=== PATIENT | male | born 1950 | race Caucasian/White ===

== ENCOUNTER 2018-10-19 11:30 | Outpatient (RCR) | payer OTHER, SELFPAY ==
--- NOTE | 2018-10-17 17:15 | PT.OIE ---
Current Diagnoses Pelvic and perineal pain (10/11/18) Provider Visit Care Team Role Provider Type Josh Mathew MD Primary Care Provider Non-Staff Specialty: Medical Address: [address] [place] [address], [place], [address] Email: Rick Monique Attending Provider Non-Staff Specialty: Urology Address: [address] [place] [address], [id number] Email: Physical Therapy Initial Evaluation PT-OP-A Visit Information Start: 10/11/18 17:12 Freq: Status: Active Protocol: Document 10/11/18 15:15 [facility] (Rec: 10/16/18 17:33 [facility] [email or web address]) Out-Patient Physical Therapy Visit Information Visit Information Visit Type Initial Evaluation Visit Note 68 year old male with B groin pain and testicle pain. He has a history of B hernia repair with mesh 10 years ago. 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 This last episode of groin pain and testicle pain occured without a hematocele and occured after he had a upper respiratory track infection and was experiencing a great deal of coughing. He reported this time he also had pain in his left adductor and pain with adducting his left leg. His pain is largely on the left side. Visit Start Time 15:15 Visit Stop Time 16:00 Total Visit Minutes 45 Visit Number 1 Evaluation Information Evaluation Date 10/11/18 PT-OP-B Current Condition Start: 10/11/18 17:12 Freq: Status: Active Protocol: Document 10/11/18 15:15 [facility] (Rec: 10/16/18 17:33 [facility] [email or web address]) Current Condition History of Current Condition Onset Date September 2018 Current Complaints Left greater than right adductor pain, bilateral inguinal and testicle pain History of Current Condition 68 year old male with bilateral groin pain and testicle pain left greater than right that was recently aggravated with heavy coughing following a upper respiratory track infection. Neville has a history of testicle and inguinal pain in the past 25 years. He had a vasectomy 30 years ago. Five years after this he had a hematocele that caused testical and inguinal pain. This resolved but has happened 5-6 times since then. This last episode though was brought on with his heavy coughing. He also had bilateral inguinal repair approximately 10 years ago. He also reports he works hard in his yard 3-4 times per week which involves using a chain saw and lifting logs. Current Functional Impairments (Reported) Functional Limitations- ADL's pain limiting activity rated 4 /10 PT-OP-F Manual Assessment Start: 10/11/18 17:12 Freq: Status: Active Protocol: Document 10/11/18 17:12 [facility] (Rec: 10/11/18 17:13 [facility] [email or web address]) Manual Assessments Soft Tissue Assessment Soft Tissue Mobility Assessment left sided iliopsoas myofascial tightness and guarding, left sided abdominal wall guarding, adductor attacment to the pubic ramus tenderness and tightness, small amounts of guarding at the left obturator internus attacments PT-OP-I Pelvic Floor Start: 10/11/18 17:12 Freq: Status: Active Protocol: Document 10/11/18 15:15 [facility] (Rec: 10/16/18 17:40 [facility] [email or web address]) Pelvic Floor Assessment Urine Pelvic Floor Surgery No PT-OP-J Posture/Palpation/Skin Start: 10/16/18 17:34 Freq: Status: Active Protocol: Document 10/11/18 15:15 [facility] (Rec: 10/16/18 17:40 [facility] [email or web address]) Palpation Assessment Location Two Palpation Location upper abdominal tightness and myofascial restrictions Palpation Details restrictions in the abdominal fascia over the left greater than right inguinal region and bladder One Palpation Location left iliopsoas Palpation Findings Soft Tissue Tightness Muscle Guarding Palpation Details tightness and spasm of the left greater than right iliopsoas PT-OP-Q Treatments Start: 10/16/18 17:34 Freq: Status: Active Protocol: Document 10/11/18 15:15 [facility] (Rec: 10/16/18 17:40 [facility] [email or web address]) Therapeutic Exercises Other Exercises 2 Other Exercise Name cobra stretch Side bilateral 1 Other Exercise Name iliopsoas stretching in neville test and 1/2 kneeling Side bilateral PT-OP-T Assessment and Plan Start: 10/16/18 17:34 Freq: Status: Active Protocol: Document 10/11/18 15:15 [facility] (Rec: 10/17/18 17:15 [facility] [email or web address]) Physical Therapy Assessment Rehab Potential Rehabilitation Potential Good Evaluation Complexity Number of Personal Factors/Comorbidities 1-2 Number of Body Systems Impaired 3 Clinical Presentation at Evaluation Evolving Impairments Impairments Activity Tolerance Functional Mobility Pain Soft Tissue Mobility Tone Goals Four Impairment tightness of the left obturator internus Short Term Goal (STG) Neville is given a home stretching routine for the hip ER and pelvic floor muscles to help reduce any restrictions these muscles may be causing that is affecting his pain. STG Duration 4 weeks Three Impairment Restrictions in the fascia of the anterior abdominal wall L> R Custodial Goal (LTG) Using MFR we are able to reduce myofascial restriction creating improved movement of the fascial tissue and the nervous tissue decreasing pain referred to the testicle. Two Impairment shortened length of the left> right iliopsoas Custodial Goal (LTG) Improve the length of the iliopsoas to create decreased tension in the anterior pelvis . Neville test is negative for iliopsoas tightness LTG Duration 8 weeks One Impairment pain rated 4/10 in the left > Right testicles and inguinal region Short Term Goal (STG) Neville is educated on anterior pelvis stretches and postural habits to decrease restriction of the fascia over the anterior pelvis reducing his pain STG Duration 4 weeks Instrument Repairer Goal (LTG) Neville reports his pelvic pain is 1/10 or less LTG Duration 8 weeks Assessment Summary Assessment Neville ia a 68 year old male referred to PT with inguinal and testicular pain. He has a history of a vasectomy 30 years ago. Five years following this he suffered a hematocele with testicular pain. 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 He has also had bilateral inguinal hernia repairs 10 years ago. His recent flare up of inguinal pain and testicular pain began approximately 6 weeks ago with a upper respiratory tract infection. He was coughing a great deal and notes there was a lot of valsalving going on as well. This coughing brought on his testicular pain as well as pain with hip adduction primarily in the left leg. Pain at its worst was 4/10 and now it is around 2-3/10. The pain worsens with coughing. Neville also reports he does a lot of heavy duty yard work including using a chain saw and lifting logs approximately 3 times per week. With examination today there is a great deal of myofascial tightness in the left greater than right abdominal wall, supra pubic region and in the inguinal region. There is left sided guarding and spasm of the adductor attachments to the pubic ramus. Iliopsoas is tight bilaterally left greater than right and there is spasm of the left iliopsoas . It is possible with all the tightness that he is experiencing some myofascial restrictions over the genitofemoral nerve referring pain into the testicles? He sits for greater than 4 hours per day with his work. He is able to facilitate his pelvic floor and did not have tenderness to external palpation over the pudendal nerve. He does have some restrictions in the left obturator internus. Treatment will focus on reducing myofascial restrictions and improving mobility over the abdominal wall and iliopsoas. He will be given stretches for home to help reduce tightness and will be put on a postural program. He may also benefit from down training and relaxation of the pelvic floor utilizing EMG biofeedback. Physical Therapy Plan Frequency and Duration Frequency of Treatment 1x/Week Duration of Treatment 8 weeks Plan of Care Start Date 10/11/18 Plan of Care End Date 12/06/18 Therapeutic Interventions Therapeutic Interventions Home Exercise Program Manual Therapy Neuromuscular Re-education Patient/Caregiver Education Soft Tissue Mobilization Taping Therapeutic Exercises Modalities Biofeedback Next Visit Focus/Plan Next Note Type Treatment Note Next Visit Plan Begin the foam roll next visit to open up the anterior pelvis and anterior myofascial lines, MFR over the abdomen, iliopsoas, and adductors on the left. Review stretches for pelvic pain.
--- NOTE | 2018-10-17 17:19 | PT.OPPOC ---
Current Diagnoses Pelvic and perineal pain (10/11/18) Provider Visit Care Team Role Provider Type Josh Mathew MD Primary Care Provider Non-Staff Specialty: Medical Address: [address] [place] [address], [place], [address] Email: Rick Monique Attending Provider Non-Staff Specialty: Urology Address: [address] [place] [address], [id number] Email: Plan Of Care PT-OP-T Assessment and Plan Start: 10/16/18 17:34 Freq: Status: Active Protocol: Document 10/11/18 15:15 [facility] (Rec: 10/17/18 17:15 [facility] [email or web address]) Physical Therapy Assessment Rehab Potential Rehabilitation Potential Good Evaluation Complexity Number of Personal Factors/Comorbidities 1-2 Number of Body Systems Impaired 3 Clinical Presentation at Evaluation Evolving Impairments Impairments Activity Tolerance Functional Mobility Pain Soft Tissue Mobility Tone Goals Four Impairment tightness of the left obturator internus Short Term Goal (STG) Neville is given a home stretching routine for the hip ER and pelvic floor muscles to help reduce any restrictions these muscles may be causing that is affecting his pain. STG Duration 4 weeks Three Impairment Restrictions in the fascia of the anterior abdominal wall L> R Shactor Helper Goal (LTG) Using MFR we are able to reduce myofascial restriction creating improved movement of the fascial tissue and the nervous tissue decreasing pain referred to the testicle. Two Impairment shortened length of the left> right iliopsoas Long-Term Goal (LTG) Improve the length of the iliopsoas to create decreased tension in the anterior pelvis . Neville test is negative for iliopsoas tightness LTG Duration 8 weeks One Impairment pain rated 4/10 in the left > Right testicles and inguinal region Short Term Goal (STG) Neville is educated on anterior pelvis stretches and postural habits to decrease restriction of the fascia over the anterior pelvis reducing his pain STG Duration 4 weeks Long-Term Goal (LTG) Neville reports his pelvic pain is 1/10 or less LTG Duration 8 weeks Assessment Summary Assessment Neville ia a 68 year old male referred to PT with inguinal and testicular pain. He has a history of a vasectomy 30 years ago. Five years following this he suffered a hematocele with testicular pain. 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 He has also had bilateral inguinal hernia repairs 10 years ago. His recent flare up of inguinal pain and testicular pain began approximately 6 weeks ago with a upper respiratory tract infection. He was coughing a great deal and notes there was a lot of valsalving going on as well. This coughing brought on his testicular pain as well as pain with hip adduction primarily in the left leg. Pain at its worst was 4/10 and now it is around 2-3/10. The pain worsens with coughing. Neville also reports he does a lot of heavy duty yard work including using a chain saw and lifting logs approximately 3 times per week. With examination today there is a great deal of myofascial tightness in the left greater than right abdominal wall, supra pubic region and in the inguinal region. There is left sided guarding and spasm of the adductor attachments to the pubic ramus. Iliopsoas is tight bilaterally left greater than right and there is spasm of the left iliopsoas . It is possible with all the tightness that he is experiencing some myofascial restrictions over the genitofemoral nerve referring pain into the testicles? He sits for greater than 4 hours per day with his work. He is able to facilitate his pelvic floor and did not have tenderness to external palpation over the pudendal nerve. He does have some restrictions in the left obturator internus. Treatment will focus on reducing myofascial restrictions and improving mobility over the abdominal wall and iliopsoas. He will be given stretches for home to help reduce tightness and will be put on a postural program. He may also benefit from down training and relaxation of the pelvic floor utilizing EMG biofeedback. Physical Therapy Plan Frequency and Duration Frequency of Treatment 1x/Week Duration of Treatment 8 weeks Plan of Care Start Date 10/11/18 Plan of Care End Date 12/06/18 Therapeutic Interventions Therapeutic Interventions Home Exercise Program Manual Therapy Neuromuscular Re-education Patient/Caregiver Education Soft Tissue Mobilization Taping Therapeutic Exercises Modalities Biofeedback Next Visit Focus/Plan Next Note Type Treatment Note Next Visit Plan Begin the foam roll next visit to open up the anterior pelvis and anterior myofascial lines, MFR over the abdomen, iliopsoas, and adductors on the left. Review stretches for pelvic pain. Plan of Care Dates Plan of Care Start Date 10/11/18 Plan of Care End Date 12/06/18 Please Sign and Return: I have reviewed this Plan of Care and certify that the skilled therapy services above are required to meet the patient?s needs. Physician Signature Date Printed Name and Credentials Clinical Instructor Signature Printed Name and Credentials
--- NOTE | 2018-10-21 10:27 | PT.OTN ---
Current Diagnoses Pelvic and perineal pain (10/19/18) Physical Therapy Treatment Note PT-OP-A Visit Information Start: 10/11/18 17:12 Freq: Status: Active Protocol: Document 10/19/18 10:20 [facility] (Rec: 10/21/18 10:22 [facility] [email or web address]) Out-Patient Physical Therapy Visit Information Visit Information Visit Type Treatment Note Visit Start Time 11:30 Visit Stop Time 12:15 Total Visit Minutes 45 Visit Number 2 PT-OP-B Current Condition Start: 10/11/18 17:12 Freq: Status: Active Protocol: Document 10/11/18 15:15 [facility] (Rec: 10/16/18 17:33 [facility] [email or web address]) Current Condition History of Current Condition Onset Date September 2018 Current Complaints Left greater than right adductor pain, bilateral inguinal and testicle pain History of Current Condition 68 year old male with bilateral groin pain and testicle pain left greater than right that was recently aggravated with heavy coughing following a upper respiratory track infection. Neville has a history of testicle and inguinal pain in the past 25 years. He had a vasectomy 30 years ago. Five years after this he had a hematocele that caused testical and inguinal pain. This resolved but has happened 5-6 times since then. This last episode though was brought on with his heavy coughing. He also had bilateral inguinal repair approximately 10 years ago. He also reports he works hard in his yard 3-4 times per week which involves using a chain saw and lifting logs. Current Functional Impairments (Reported) Functional Limitations- ADL's pain limiting activity rated 4 /10 PT-OP-C Subjective Start: 10/11/18 17:12 Freq: Status: Active Protocol: Document 10/19/18 10:20 [facility] (Rec: 10/21/18 10:22 [facility] [email or web address]) OP-PT Subjective Patient Comments Patient Comments pt reports he can really feel his symptoms when he is coughing. Both the inguinal and the testicle symptoms PT-OP-F Manual Assessment Start: 10/11/18 17:12 Freq: Status: Active Protocol: Document 10/11/18 17:12 [facility] (Rec: 10/11/18 17:13 [facility] [email or web address]) Manual Assessments Soft Tissue Assessment Soft Tissue Mobility Assessment left sided iliopsoas myofascial tightness and guarding, left sided abdominal wall guarding, adductor attachment to the pubic ramus tenderness and tightness, small amounts of guarding at the left obturator internus attachments PT-OP-I Pelvic Floor Start: 10/11/18 17:12 Freq: Status: Active Protocol: Document 10/11/18 15:15 [facility] (Rec: 10/16/18 17:40 [facility] [email or web address]) Pelvic Floor Assessment Urine Pelvic Floor Surgery No PT-OP-J Posture/Palpation/Skin Start: 10/16/18 17:34 Freq: Status: Active Protocol: Document 10/11/18 15:15 [facility] (Rec: 10/16/18 17:40 [facility] [email or web address]) Palpation Assessment Location Two Palpation Location upper abdominal tightness and myofascial restrictions Palpation Details restrictions in the abdominal fascia over the left greater than right inguinal region and bladder One Palpation Location left iliopsoas Palpation Findings Soft Tissue Tightness Muscle Guarding Palpation Details tightness and spasm of the left greater than right iliopsoas PT-OP-Q Treatments Start: 10/16/18 17:34 Freq: Status: Active Protocol: Document 10/21/18 10:23 [facility] (Rec: 10/21/18 10:27 [facility] [email or web address]) Therapeutic Exercises Supine Exercises 1 Supine Exercise Name TA brace with pelvic floor contraction Reps/Minutes 10 reps Comments worked on TA and pelvic floor brace with cough Other Exercises 4 Other Exercise Name foam roll stretch to open up the anterior pelvis and chest 3 Other Exercise Name quadraped TA facilitation with exhale, relax with inhale Reps/Minutes 10 reps, pt to work on 10 second hold time 2 Other Exercise Name cobra stretch Side bilateral 1 Other Exercise Name iliopsoas stretching in neville test and 1/2 kneeling, standing Side bilateral Manual Therapy Treatment Soft Tissue Mobilization 2 Body Location iliopsoas release in thonoas test position 1 Body Location MFR over the abdomen and suprapubic fascia PT-OP-T Assessment and Plan Start: 10/16/18 17:34 Freq: Status: Active Protocol: Document 10/21/18 10:23 [facility] (Rec: 10/21/18 10:27 [facility] [email or web address]) Physical Therapy Assessment Assessment Summary Assessment good tolerance for manual work and stretches today, with pelvic floor activation prior to cough pain is decreased. Myofascial restrictions noted in the anterior abdominal fascia over the left greater than right and in the iliopsoas Physical Therapy Plan Frequency and Duration Frequency of Treatment 1x/Week Duration of Treatment 8 weeks Plan of Care Start Date 10/11/18 Plan of Care End Date 12/06/18 Therapeutic Interventions Therapeutic Interventions Home Exercise Program Manual Therapy Neuromuscular Re-education Patient/Caregiver Education Soft Tissue Mobilization Taping Therapeutic Exercises Modalities Biofeedback Next Visit Focus/Plan Next Note Type Treatment Note Next Visit Plan continue to work on releasing scar tissue and fascia over abdominal region, stretches for the anterior pelvis and abdominal region, begin with foam roll next visit
--- NOTE | 2019-07-06 15:13 | PT.OPDS ---
Current Diagnoses Pelvic and perineal pain (10/19/18) Visit Care Team Role Provider Type Josh Mathew MD Primary Care Provider Non-Staff Specialty: Medical Address: [address] [place] [address], [place], [address] Email: Rick Monique Attending Provider Non-Staff Specialty: Urology Address: [address] [place] [address], [id number] Email: Visit Number Visit Number 2 Discharge Summary PT-OP-B Current Condition Start: 10/11/18 17:12 Freq: Status: Active Protocol: Document 10/11/18 15:15 [facility] (Rec: 10/16/18 17:33 [facility] [email or web address]) Current Condition History of Current Condition Onset Date September 2018 Current Complaints Left greater than right adductor pain, bilateral inguinal and testicle pain History of Current Condition 68 year old male with bilateral groin pain and testicle pain left greater than right that was recently aggravated with heavy coughing following a upper respiratory track infection. Neville has a history of testicle and inguinal pain in the past 25 years. He had a vasectomy 30 years ago. Five years after this he had a hematocele that caused testical and inguinal pain. This resolved but has happened 5-6 times since then. This last episode though was brought on with his heavy coughing. He also had bilateral inguinal repair approximately 10 years ago. He also reports he works hard in his yard 3-4 times per week which involves using a chain saw and lifting logs. Current Functional Impairments (Reported) Functional Limitations- ADL's pain limiting activity rated 4 /10 PT-OP-C Subjective Start: 10/11/18 17:12 Freq: Status: Active Protocol: Document 10/19/18 10:20 [facility] (Rec: 10/21/18 10:22 [facility] [email or web address]) OP-PT Subjective Patient Comments Patient Comments pt reports he can really feel his symptoms when he is coughing. Both the inguinal and the testicle symptoms PT-OP-F Manual Assessment Start: 10/11/18 17:12 Freq: Status: Active Protocol: Document 10/11/18 17:12 [facility] (Rec: 10/11/18 17:13 [facility] [email or web address]) Manual Assessments Soft Tissue Assessment Soft Tissue Mobility Assessment left sided iliopsoas myofascial tightness and guarding, left sided abdominal wall guarding, adductor attacment to the pubic ramus tenderness and tightness, small amounts of guarding at the left obturator internus attacments PT-OP-I Pelvic Floor Start: 10/11/18 17:12 Freq: Status: Active Protocol: Document 10/11/18 15:15 [facility] (Rec: 10/16/18 17:40 [facility] [email or web address]) Pelvic Floor Assessment Urine Pelvic Floor Surgery No PT-OP-J Posture/Palpation/Skin Start: 10/16/18 17:34 Freq: Status: Active Protocol: Document 10/11/18 15:15 [facility] (Rec: 10/16/18 17:40 [facility] [email or web address]) Palpation Assessment Location Two Palpation Location upper abdominal tightness and myofascial restrictions Palpation Details restrictions in the abdominal fascia over the left greater than right inguinal region and bladder One Palpation Location left iliopsoas Palpation Findings Soft Tissue Tightness,Muscle Guarding Palpation Details tightness and spasm of the left greater than right iliopsoas PT-OP-T Assessment and Plan Start: 10/16/18 17:34 Freq: Status: Active Protocol: Document 07/06/19 15:12 [facility] (Rec: 07/06/19 15:12 [facility] [email or web address]) Physical Therapy Plan Discharge Physical Therapy Discharge Reasons No Longer Attending PT Discharge Comments Pt has not been seen since . DC PT at this time
== END 2018-10-20 12:11 ==
LOC: PHYS 11:30
PROVIDERS: PCP Student in an Organized Health Care Education/Training Program; Visit Provider Urology
DX: R10.2 Pelvic and perineal pain (principal)
CPT/HCPCS: 97110; 97140; 97162

== ENCOUNTER 2022-12-04 15:00 | Outpatient (RCR) | payer MEDICARE, SELFPAY ==
--- NOTE | 2022-10-30 11:20 | PT.OTN ---
Current Diagnoses Pain in right elbow (10/30/22) Physical Therapy Treatment Note PT-OP-A Visit Information Start: 10/09/22 11:55 Freq: Status: Active Protocol: Document 10/30/22 10:34 SP (Rec: 10/30/22 11:42 SP [id number]) Out-Patient Physical Therapy Visit Information Visit Information Visit Type Initial Evaluation Visit Note See patient care for notes on POC. Visit Start Time 10:34 Visit Stop Time 1120 Total Visit Minutes 46 Visit Number 2 Number of REAL ESTATE RECRUITER Visits 1 Precautions Precautions GERD uses pillows to bring head up PT-OP-C Subjective Start: 10/09/22 11:55 Freq: Status: Active Protocol: Document 10/30/22 10:34 SP (Rec: 10/30/22 11:42 SP [id number]) OP-PT Subjective Patient Comments Patient Comments Pt reports has been compliant 60% with HEP, elbow flex/ext, relax posterior over dome cushion, scap retraction. States R elbow always hurts when wakes up and rest on on arm rest. PT-OP-E Functional Tests Start: 10/09/22 11:55 Freq: Status: Active Protocol: Document 10/09/22 13:54 TH (Rec: 10/09/22 15:22 TH [id number]) Functional Tests Other QuickDASH Name of Test QuickDASH Score 29 PT-OP-J Posture/Palpation/Skin Start: 10/09/22 11:55 Freq: Status: Active Protocol: Document 10/09/22 13:54 TH (Rec: 10/09/22 15:22 TH [id number]) Posture Evaluation Comments Posture Comments right scapula depressed, right trunk ant rot. Palpation Assessment Location Right Shoulder Palpation Details Tender: Right supraspinatus, lev scap, mid trap, pronators Hypomobile right AC jt PT-OP-K Range of Motion Start: 10/09/22 11:55 Freq: Status: Active Protocol: Document 10/09/22 13:54 TH (Rec: 10/09/22 15:22 TH [id number]) Shoulder Goniometric Range of Motion Shoulder right Shoulder ROM WFL Yes Flexion 125 Abduction 130 External Rotation at 0 degrees Abduction 85 Internal Rotation Behind Back (text) L5 Elbow/Forearm Range of Motion Elbow/Forearm right Comments Flex: 135 Ext: WNL PT-OP-Q Treatments Start: 10/09/22 11:55 Freq: Status: Active Protocol: Document 10/30/22 10:34 SP (Rec: 10/30/22 11:42 SP [id number]) Therapeutic Exercises Sidelying Exercises open book Sidelying Exercise Name added to HEP Side bilateral Resistance AROM Reps/Minutes 8 reps Comments cued head turn with arm, TS rotation painfree ROM Sitting Exercises ulnar nerve glide Sitting Exercise Name added to HEP Side right Resistance manual and ed self AROM Reps/Minutes x5 Comments good feedback response supine and ed self seated wrist ROM Sitting Exercise Name reviewed HEP Side right Resistance AROM (HEP review), TB #1 Equipment Used forearm resting on table Reps/Minutes x10 Comments cued slow con/eccentric ROM- good feedback response painfree range Manual Therapy Treatment Soft Tissue Mobilization R forearm Body Location CET, pronator teres Mobilization Type Myofascial Release,Strumming, Sustained Pressure,Other Intensity/Depth Moderate Body Position Hooklying Comments gentle manual and sustained pressure with FM wrist flex/ ext/pron/sup. Joint Mobilizations wrist jt Direction PA Grade I Comments with Rwrist PROM extension- min pain over CET end range extension- stopped humerounlar jt Joint R Direction inferior, lateral, medial glide ulna Grade II Body Position Hooklying Comments manual use mob strap/ towels- good feedback painfree and good light elbow jt distraction Self-Care/Home Management Treatment Education Patient Education Body Mechanics,Home Exercise Program,Posture Other Education Small time spend discuss use pillows side sleeping support between BLEs, front arms to allow trunk and RUE support alignment to decrease tension on R elbow/ulnar nerve, good response and has already started home. Added TB resistance to R wrist HEP with good feedback tolerance and AROM open book for scapular thoracic mobility support to RUE when gets up in am decrease arm tightness and pain. PT-OP-T Assessment and Plan Start: 10/09/22 11:55 Freq: Status: Active Protocol: Document 10/30/22 10:34 SP (Rec: 10/30/22 11:42 SP [id number]) Physical Therapy Assessment Goals Lifting Impairment Difficulty lifting heavier than 20 lbs without flare up Short Term Goal (STG) Pt will be able to lift and carry 15 lbs with r elbow pain < = 4/10. STG Duration 11/20/22 Primary Care Sales Representative Goal (LTG) Pt will be able to lift and carry > = 20 lbs with minimal r elbow pain. LTG Duration 01/01/23 Gardening Impairment Difficult to shovel due to increased pain. Short Term Goal (STG) Pt estela be able to shovel with < = 4/10 right elbow pain. STG Duration 11/20/22 Primary Care Sales Representative Goal (LTG) Pt will be able to shovel with minimal right elbow pain. LTG Duration 01/01/23 Sleep througout night Impairment Difficult to sleep, wakes up with right ulnar pain Short Term Goal (STG) Pt will be able to sleep with 50 % interruptions to sleep. STG Duration 11/20/22 6 weeks [facility] Goal (LTG) Pt will be able to sleep without interruptions from pain. LTG Duration 01/01/23 Assessment Summary Assessment Pt responded well to manual R elbow STMs, humerounlar jt mob , AROM and added light TB resistance to HEP of wrist. CUes for set up and proper form slow eccentric control return. Good response to open book for carryover ROM when gets up for decrease RUE tightness/pain currently experiencing. Physical Therapy Plan Frequency and Duration Frequency of Treatment 1x/wk Duration of treatment (weeks) 12 Plan of Care Start Date 10/09/22 Plan of Care End Date 01/01/23 Therapeutic Interventions Therapeutic Interventions Balance Training,Coordination Training,Home Exercise Program ,Joint Mobilizations,Manual Therapy,Neuromuscular Re- education,Patient/Caregiver Education,Self-Care/Home Management,Soft Tissue Mobilization,Taping, Therapeutic Activities, Therapeutic Exercises Modalities Cold Pack/Ice Massage,Electric Stimulation,Hot Packs, Traction- Mechanical, Ultrasound Next Visit Focus/Plan Next Note Type Treatment Note Next Visit Plan Assess response to manual, openbook, resisted wrist HEP. POC: Radioulnar mobilization elbow distraction IASTM forearm pronators AC joint mobilization *pt lives on [facility] limited availability with schedule.
--- NOTE | 2022-11-10 13:15 | PT.OTN ---
Current Diagnoses Pain in right elbow (11/10/22) Physical Therapy Treatment Note PT-OP-A Visit Information Start: 10/09/22 11:55 Freq: Status: Active Protocol: Document 11/10/22 12:20 SP (Rec: 11/10/22 13:30 SP [id number]) Out-Patient Physical Therapy Visit Information Visit Information Visit Type Treatment Note Visit Note Pt 20 min late for appt, ferry [place]. Pt reported thinks feels little better. No adverse affects to new band exercises. He stated still seems most aggrivation is resting R forearm on arm rest. Visit Start Time 12:20 Visit Stop Time 13:15 Total Visit Minutes 55 Visit Number 3 Number of AGENT SPA DESK Visits 2 Precautions Precautions GERD uses pillows to bring head up PT-OP-C Subjective Start: 10/09/22 11:55 Freq: Status: Active Protocol: Document 10/30/22 10:34 SP (Rec: 10/30/22 11:42 SP [id number]) OP-PT Subjective Patient Comments Patient Comments Pt reports has been compliant 60% with HEP, elbow flex/ext, relax posterior over dome cushion, scap retraction. States R elbow always hurts when wakes up and rest on on arm rest. PT-OP-E Functional Tests Start: 10/09/22 11:55 Freq: Status: Active Protocol: Document 10/09/22 13:54 TH (Rec: 10/09/22 15:22 TH [id number]) Functional Tests Other QuickDASH Name of Test QuickDASH Score 29 PT-OP-J Posture/Palpation/Skin Start: 10/09/22 11:55 Freq: Status: Active Protocol: Document 10/09/22 13:54 TH (Rec: 10/09/22 15:22 TH [id number]) Posture Evaluation Comments Posture Comments right scapula depressed, right trunk ant rot. Palpation Assessment Location Right Shoulder Palpation Details Tender: Right supraspinatus, lev scap, mid trap, pronators Hypomobile right AC jt PT-OP-K Range of Motion Start: 10/09/22 11:55 Freq: Status: Active Protocol: Document 10/09/22 13:54 TH (Rec: 10/09/22 15:22 TH [id number]) Shoulder Goniometric Range of Motion Shoulder right Shoulder ROM WFL Yes Flexion 125 Abduction 130 External Rotation at 0 degrees Abduction 85 Internal Rotation Behind Back (text) L5 Elbow/Forearm Range of Motion Elbow/Forearm right Comments Flex: 135 Ext: WNL PT-OP-Q Treatments Start: 10/09/22 11:55 Freq: Status: Active Protocol: Document 11/10/22 12:20 SP (Rec: 11/10/22 13:30 SP [id number]) Therapeutic Exercises Sidelying Exercises open book Sidelying Exercise Name reviewed HEP Side bilateral Resistance AROM Reps/Minutes 8 reps Comments cued head turn with arm, TS rotation painfree ROM Sitting Exercises scap retraction Sitting Exercise Name HEP reviewed (added at eval) Reps/Minutes 2 SH x10 Comments cued scap retraction/ depression self R elbow mobilization Sitting Exercise Name HEP reviewed (added at eval)- see scanned HO. Side right Reps/Minutes 3 min total Comments cued for proper set up/form ulnar nerve glide Sitting Exercise Name added to HEP Side right Resistance manual and ed self AROM Reps/Minutes x5 Comments good feedback response supine and ed self seated Standing Exercises bicep curl Standing Exercise Name added to HEP Side right Reps/Minutes 2x10 Comments cued arm at side, scap retraction stabiliation tricep ext Standing Exercise Name added to HEP Side right Resistance TB #3 Reps/Minutes 2x10 Comments cued stand close, arm at side, bend/straight elbow, slow controlled wrist Tb 4 way Standing Exercise Name initiated in standing: wrist flex, ext, pron, sup Side right Resistance Tb #1 Reps/Minutes 2x10 each Comments cued arm at side, slow con/ecc wrist mov't Manual Therapy Treatment Soft Tissue Mobilization R forearm Body Location CET, CFT, pronator teres, tricep Mobilization Type Myofascial Release,Strumming, Sustained Pressure,Other Intensity/Depth Moderate Body Position Hooklying Comments gentle manual and sustained pressure with FM wrist flex/ ext/pron/sup. Joint Mobilizations humerounlar jt Joint R Direction inferior, lateral, medial glide ulna Grade II Body Position Hooklying Comments manual use mob strap/ towels- good feedback painfree and good light elbow jt distraction Manual Techniques elbow distraction Type R elbow distraction mobilization Comments manual and reviewed Self HO HEP for carryover, felt more confident. rolled towel anterior R elbow, LUE hold R wrist/forearm close toward chest, gentle R upper arm ext intension hold 10 sec, good feedback elbow distraction stretch inside jt. PT-OP-T Assessment and Plan Start: 10/09/22 11:55 Freq: Status: Active Protocol: Document 11/10/22 12:20 SP (Rec: 11/10/22 13:30 SP [id number]) Physical Therapy Assessment Goals Lifting Impairment Difficulty lifting heavier than 20 lbs without flare up Short Term Goal (STG) Pt will be able to lift and carry 15 lbs with r elbow pain < = 4/10. STG Duration 11/20/22 Ground Systems Engineer Goal (LTG) Pt will be able to lift and carry > = 20 lbs with minimal r elbow pain. LTG Duration 01/01/23 Gardening Impairment Difficult to shovel due to increased pain. Short Term Goal (STG) Pt estela be able to shovel with < = 4/10 right elbow pain. STG Duration 11/20/22 Ground Systems Engineer Goal (LTG) Pt will be able to shovel with minimal right elbow pain. LTG Duration 01/01/23 Sleep througout night Impairment Difficult to sleep, wakes up with right ulnar pain Short Term Goal (STG) Pt will be able to sleep with 50 % interruptions to sleep. STG Duration 11/20/22 6 weeks Longterm Goal (LTG) Pt will be able to sleep without interruptions from pain. LTG Duration 01/01/23 Assessment Summary Assessment Extra time finding correct arm positioning during standing TB. Pt good feedback response to manual, elbow distraction HEP for carryover at home and added theraband exercises 4 way wrist, tricep and bicep in standing reported good muscular engeagement and decrease tension on elbow post . Pt reported more fluid movement R elbow post tx. Physical Therapy Plan Frequency and Duration Frequency of Treatment 1x/wk Duration of treatment (weeks) 12 Plan of Care Start Date 10/09/22 Plan of Care End Date 01/01/23 Therapeutic Interventions Therapeutic Interventions Balance Training,Coordination Training,Home Exercise Program ,Joint Mobilizations,Manual Therapy,Neuromuscular Re- education,Patient/Caregiver Education,Self-Care/Home Management,Soft Tissue Mobilization,Taping, Therapeutic Activities, Therapeutic Exercises Modalities Cold Pack/Ice Massage,Electric Stimulation,Hot Packs, Traction- Mechanical, Ultrasound Next Visit Focus/Plan Next Note Type Treatment Note Next Visit Plan Next tx: assess goal progress. Assess response manual, added tricep , bicep, wrist 4 way in standing. POC: Radioulnar mobilization elbow distraction IASTM forearm pronators AC joint mobilization *pt lives on [facility] limited availability with ferry schedule.
--- NOTE | 2022-11-27 11:37 | PT.OTN ---
Current Diagnoses Pain in right elbow (11/27/22) Physical Therapy Treatment Note PT-OP-A Visit Information Start: 10/09/22 11:55 Freq: Status: Active Protocol: Document 11/27/22 10:54 SP (Rec: 11/27/22 11:44 SP [id number]) Out-Patient Physical Therapy Visit Information Visit Information Visit Type Treatment Note Visit Start Time 10:54 Visit Stop Time 11:37 Total Visit Minutes 43 Visit Number 4 Number of HISTOLOGY TECHNICIAN Visits 3 Precautions Precautions GERD uses pillows to bring head up PT-OP-C Subjective Start: 10/09/22 11:55 Freq: Status: Active Protocol: Document 11/27/22 10:54 SP (Rec: 11/27/22 11:44 SP [id number]) OP-PT Subjective Patient Comments Patient Comments Pt reports almost symptom free , only notice and not to the extreme as has been pain when long rest on firm surfaces like in car. He has been doing some gardening and no pain. Is not waking up with pain anymore. Compliant with HEP 3x /wk. HE reports ulnar nerve glidese and other strengthening HEP helping almsot eliminate pain. Patient Reported Progress Improving PT-OP-E Functional Tests Start: 10/09/22 11:55 Freq: Status: Active Protocol: Document 10/09/22 13:54 TH (Rec: 10/09/22 15:22 TH [id number]) Functional Tests Other QuickDASH Name of Test QuickDASH Score 29 PT-OP-J Posture/Palpation/Skin Start: 10/09/22 11:55 Freq: Status: Active Protocol: Document 10/09/22 13:54 TH (Rec: 10/09/22 15:22 TH [id number]) Posture Evaluation Comments Posture Comments right scapula depressed, right trunk ant rot. Palpation Assessment Location Right Shoulder Palpation Details Tender: Right supraspinatus, lev scap, mid trap, pronators Hypomobile right AC jt PT-OP-K Range of Motion Start: 10/09/22 11:55 Freq: Status: Active Protocol: Document 10/09/22 13:54 TH (Rec: 10/09/22 15:22 TH [id number]) Shoulder Goniometric Range of Motion Shoulder right Shoulder ROM WFL Yes Flexion 125 Abduction 130 External Rotation at 0 degrees Abduction 85 Internal Rotation Behind Back (text) L5 Elbow/Forearm Range of Motion Elbow/Forearm right Comments Flex: 135 Ext: WNL PT-OP-Q Treatments Start: 10/09/22 11:55 Freq: Status: Active Protocol: Document 11/27/22 10:54 SP (Rec: 11/27/22 11:44 SP [id number]) Therapeutic Exercises Supine Exercises Supine pec stretch/ROM Supine Exercise Name reviewed HO HEP Equipment Used over foam roller Reps/Minutes 2 min Comments Discussed can also add TB learned in standing today. Sidelying Exercises open book Sidelying Exercise Name discussed daily good warm up Side bilateral Resistance AROM Reps/Minutes 8 reps Comments cued head turn with arm, TS rotation painfree ROM Sitting Exercises self R elbow mobilization Sitting Exercise Name discussed perform as needed Side right Reps/Minutes 3 min total Comments cued for proper set up/form ulnar nerve glide Sitting Exercise Name reviewed HEP- perform as needed Side right Resistance manual and ed self AROM Reps/Minutes x3 Comments good feedback response supine and ed self seated Standing Exercises D2 flexion Standing Exercise Name added to HEP Side right Resistance Tb #5 plum Equipment Used mirror Reps/Minutes 5 reps Comments cued scap set HABD Standing Exercise Name added to HEP Side right Resistance TB #5 plum Equipment Used mirror Reps/Minutes 5 reps x2 Comments scap set bicep curl Standing Exercise Name reviewed HEP: 3 angles Side right Equipment Used TB#3> #5 plum Reps/Minutes 2x10 Comments cued arm at side, scap retraction stabiliation tricep ext Standing Exercise Name reviewed HEP Side right Resistance TB #3 Reps/Minutes 2x10 Comments cued stand close, arm at side, bend/straight elbow, slow controlled wrist Tb 4 way Standing Exercise Name reviewed wrist flex, ext, pron , sup Side right Resistance Tb #1>#3 Reps/Minutes x15 Comments cued slow con/ecc, occasion reassurance proper stand/arm position & direct PT-OP-T Assessment and Plan Start: 10/09/22 11:55 Freq: Status: Active Protocol: Document 11/27/22 10:54 SP (Rec: 11/27/22 11:44 SP [id number]) Physical Therapy Assessment Goals Lifting Impairment Difficulty lifting heavier than 20 lbs without flare up Short Term Goal (STG) Pt will be able to lift and carry 15 lbs with r elbow pain < = 4/10. 11/27/22: goal MET: no pain lifting > 20 # (5gal full container gas). STG Duration 11/20/22 GOAL MET 11/27/22 [facility] Goal (LTG) Pt will be able to lift and carry > = 20 lbs with minimal r elbow pain. 11/27/22: goal MET: no pain lifting > 20 # (5gal full container gas). LTG Duration 01/01/23 GOAL MET 11/27/22 Gardening Impairment Difficult to shovel due to increased pain. Short Term Goal (STG) Pt estela be able to shovel with < = 4/10 right elbow pain. 11/27/22: Progressing at most 1 /10 shoveling with garden work especially if jarring spade into ground trying to be more gentle using foot. STG Duration 11/20/22 progressing 11/27/22 [facility] Goal (LTG) Pt will be able to shovel with minimal right elbow pain. 11/26/22: Progressing at most 1 /10 shoveling with garden work especially if jarring spade into ground trying to be more gentle using foot. LTG Duration 01/01/23 progressing 11/27/22 Sleep througout night Impairment Difficult to sleep, wakes up with right ulnar pain Short Term Goal (STG) Pt will be able to sleep with 50 % interruptions to sleep. 11/27/22: GOAL MET: no elbow pain waking him up at night STG Duration 11/20/22 6 weeks GOAL MET [facility] Goal (LTG) Pt will be able to sleep without interruptions from pain. 11/27/22: GOAL MET: no elbow pain waking him up at night LTG Duration 01/01/23 11/27/22 GOAL MET Progress Towards Goals Progress Towards Goals Progressing Toward Goals Progress Comments MET GOALS lifting and sleeping throught night goals. Progressing gardening goals. Assessment Summary Assessment Pt good response to ther ex today, occasional cues and use mirror for self scap and elbow positioning for con/ eccentric direction resistance . Painfree and good forearm and bicep/tricep effort work with no adverse affects. May only need 3 more appts. Physical Therapy Plan Frequency and Duration Frequency of Treatment 1x/wk Duration of treatment (weeks) 12 Plan of Care Start Date 10/09/22 Plan of Care End Date 01/01/23 Therapeutic Interventions Therapeutic Interventions Balance Training,Coordination Training,Home Exercise Program ,Joint Mobilizations,Manual Therapy,Neuromuscular Re- education,Patient/Caregiver Education,Self-Care/Home Management,Soft Tissue Mobilization,Taping, Therapeutic Activities, Therapeutic Exercises Modalities Cold Pack/Ice Massage,Electric Stimulation,Hot Packs, Traction- Mechanical, Ultrasound Next Visit Focus/Plan Next Note Type Treatment Note Next Visit Plan Assess added HABD, D2 flexion. Pt will bring his HOs for PT to view next tx. May only need 3 more appts. Next add wB: plank/pushup and what he brings feedback ADL activities. POC: Radioulnar mobilization elbow distraction IASTM forearm pronators AC joint mobilization *pt lives on [facility] limited availability with ferry schedule.
--- NOTE | 2022-12-04 15:50 | PT.OTN ---
Current Diagnoses Pain in right elbow (12/04/22) Physical Therapy Treatment Note PT-OP-A Visit Information Start: 10/09/22 11:55 Freq: Status: Active Protocol: Document 12/04/22 15:02 LRN (Rec: 12/04/22 15:49 LRN [id number]) Out-Patient Physical Therapy Visit Information Visit Information Visit Type Treatment Note Visit Start Time 15:02 Visit Stop Time 15:35 Total Visit Minutes 33 Visit Number 5 Precautions Precautions GERD uses pillows to bring head up PT-OP-C Subjective Start: 10/09/22 11:55 Freq: Status: Active Protocol: Document 12/04/22 15:02 LRN (Rec: 12/04/22 15:49 LRN [id number]) OP-PT Subjective Patient Comments Patient Comments States he has very little R elbow pain. States his pain is 1/10 and he has returned to gardening activities and has no other ADL concerns. Pt believes he is ready to be placed on his HEP. Patient Questionnaires Quick Dash- Upper Extremity Quick Dash UE Score 4.54 Quick Dash UE Impairment 1 to 19% Impaired (Score 1-19) PT-OP-E Functional Tests Start: 10/09/22 11:55 Freq: Status: Active Protocol: Document 10/09/22 13:54 TH (Rec: 10/09/22 15:22 TH [id number]) Functional Tests Other QuickDASH Name of Test QuickDASH Score 29 PT-OP-J Posture/Palpation/Skin Start: 10/09/22 11:55 Freq: Status: Active Protocol: Document 10/09/22 13:54 TH (Rec: 10/09/22 15:22 TH [id number]) Posture Evaluation Comments Posture Comments right scapula depressed, right trunk ant rot. Palpation Assessment Location Right Shoulder Palpation Details Tender: Right supraspinatus, lev scap, mid trap, pronators Hypomobile right AC jt PT-OP-K Range of Motion Start: 10/09/22 11:55 Freq: Status: Active Protocol: Document 10/09/22 13:54 TH (Rec: 10/09/22 15:22 TH [id number]) Shoulder Goniometric Range of Motion Shoulder right Shoulder ROM WFL Yes Flexion 125 Abduction 130 External Rotation at 0 degrees Abduction 85 Internal Rotation Behind Back (text) L5 Elbow/Forearm Range of Motion Elbow/Forearm right Comments Flex: 135 Ext: WNL PT-OP-Q Treatments Start: 10/09/22 11:55 Freq: Status: Active Protocol: Document 12/04/22 15:02 LRN (Rec: 12/04/22 15:49 LRN [id number]) Therapeutic Exercises Prone Exercises Push up Prone Exercise Name Push up Reps/Minutes 2x Plank on Elbows Prone Exercise Name Plank on Elbows Side bilateral Reps/Minutes 10 SH x 5 Standing Exercises D2 flexion Standing Exercise Name D2 Flexion - HEP Side right Resistance Tb #5 plum Equipment Used mirror Reps/Minutes 5 reps Comments cued scap set HABD Standing Exercise Name HABD - HEP Side right Resistance TB #5 plum Equipment Used mirror Reps/Minutes 10x Comments scap set bicep curl Standing Exercise Name reviewed HEP: 3 angles Side right Equipment Used TB #5 plum Reps/Minutes 10x Comments cued arm at side, scap retraction stabiliation wrist Tb 4 way Standing Exercise Name reviewed wrist flex, ext, pron , sup Side right Resistance Tb #5 plum Reps/Minutes x8-10 Comments cued slow con/ecc, occasion reassurance proper stand/arm position & direct Self-Care/Home Management Treatment Activities Self-Care/Home Management Activities Issued Lev 5 TBand (pedro) for HEP. PT-OP-T Assessment and Plan Start: 10/09/22 11:55 Freq: Status: Active Protocol: Document 12/04/22 15:02 LRN (Rec: 12/04/22 15:49 N [id number]) Physical Therapy Assessment Goals Lifting Impairment Difficulty lifting heavier than 20 lbs without flare up Short Term Goal (STG) Pt will be able to lift and carry 15 lbs with r elbow pain < = 4/10. 11/27/22: goal MET: no pain lifting > 20 # (5gal full container gas). STG Duration 11/20/22 GOAL MET 11/27/22 Staff Physician Goal (LTG) Pt will be able to lift and carry > = 20 lbs with minimal r elbow pain. 11/27/22: goal MET: no pain lifting > 20 # (5gal full container gas). LTG Duration 01/01/23 GOAL MET 11/27/22 Gardening Impairment Difficult to shovel due to increased pain. Short Term Goal (STG) Pt estela be able to shovel with < = 4/10 right elbow pain. 11/27/22: Progressing at most 1 /10 shoveling with garden work especially if jarring spade into ground trying to be more gentle using foot. 12/04/22: Can shovel with R elbow pain rated 1-2/10. STG Duration 11/20/22 12/04/22: MET GOAL. Staff Physician Goal (LTG) Pt will be able to shovel with minimal right elbow pain. 11/26/22: Progressing at most 1 /10 shoveling with garden work especially if jarring spade into ground trying to be more gentle using foot. 12/04/22: Pt reports minimal pain elbow pain with shovelling. LTG Duration 01/01/23 12/04/22: MET GOAL Sleep througout night Impairment Difficult to sleep, wakes up with right ulnar pain Short Term Goal (STG) Pt will be able to sleep with 50 % interruptions to sleep. 11/27/22: GOAL MET: no elbow pain waking him up at night STG Duration 11/20/22 6 weeks GOAL MET Staff Physician Goal (LTG) Pt will be able to sleep without interruptions from pain. 11/27/22: GOAL MET: no elbow pain waking him up at night LTG Duration 01/01/23 11/27/22 GOAL MET Assessment Summary Assessment Good recall of HEP previously issued (HABD & D2 flex). R elbow pain is 1/10. Pt able to perform plank and push ups with pain at 1/10, no increase in pain. Pt shows no signs of cervical involvement and appears to have met all goals. Functionally he has improved to 1-19% impaired, per UE QuickDASH score of 4.54 ( initially was score 29, 20-39% impaired). Pt feels confident to continue on a self care HEP. Physical Therapy Plan Discharge Physical Therapy Discharge Reasons Goals Met Discharge Comments Thank you for your referral.
== END 2022-12-08 12:29 | disposition home or self-care (01) ==
LOC: PHYS 15:00
PROVIDERS: Family Provider Student in an Organized Health Care Education/Training Program; PCP Student in an Organized Health Care Education/Training Program; Referring Provider Student in an Organized Health Care Education/Training Program; Visit Provider Student in an Organized Health Care Education/Training Program
DX: M25.521 Pain in right elbow (principal)
CPT/HCPCS: 97110; 97140; 97161; 97535